=== PATIENT | female | born 1995 | race Two or more races ===

== ENCOUNTER 2017-10-14 23:34 | Emergency (ER) | payer OTHER ==
[2017-10-15 00:31] LABS: BASO # 0.1 10^3/uL (0.0-0.2); BASO % 0.6 % (0.0-1.0); EOS # 0.2 10^3/uL (0.0-0.50); EOS % 1.9 % (0.0-3.0); IMMATURE GRANULOCYTE % 0.2 % (0-0); LYMPH # 3.7 10^3/uL (1.5-6.5); LYMPH % 37.5 % (24.0-44.0); MEAN CORPUSCULAR HEMOGLOBIN 27.6 pg (27.0-33.0); MEAN CORPUSCULAR HGB CONC 33.5 g/dl (32.0-36.5); MEAN CORPUSCULAR VOLUME 82.4 fl (80.0-96.0); MONO # 0.7 10^3/uL (0.0-0.8); MONO % 6.6 % (0.0-5.0); NEUTROPHILS # 5.3 10^3/uL (1.8-7.7); NEUTROPHILS % 53.2 % (36.0-66.0); PLATELET COUNT, AUTOMATED 311 10^3/uL (150-450)
[2017-10-15 01:05] LABS: ANION GAP 8 MEQ/L (8-16); BLOOD UREA NITROGEN 17 MG/DL (7-18); CALCIUM LEVEL 8.9 MG/DL (8.5-10.1); CARBON DIOXIDE LEVEL 26 MEQ/L (21-32); CHLORIDE LEVEL 104 MEQ/L (98-107); CREATININE FOR GFR 0.48 MG/DL (0.55-1.02); GLOMERULAR FILTRATION RATE > 60.0 (>60); GLUCOSE, FASTING 81 MG/DL (70-105); HCG, SERUM QUANTITATIVE 57752 MIU/ML; POTASSIUM SERUM 4.1 MEQ/L (3.5-5.1); SODIUM LEVEL 138 MEQ/L (136-145)
== END 2017-10-15 02:38 | disposition home or self-care (01) ==
LOC: M ED 23:34
DX: O20.9 Hemorrhage in early pregnancy, unspecified (principal); Z3A.01 Less than 8 weeks gestation of pregnancy
CPT/HCPCS: 76801

== ENCOUNTER 2017-12-10 21:27 | Emergency (ER) | payer OTHER | END 2017-12-10 22:23 | disposition left against medical advice (07) | LOC: M ED 21:27 | DX: Z53.21 Procedure and treatment not carried out due to patient leaving prior to being seen by health care provider (principal) ==

== ENCOUNTER 2018-05-25 22:48 | Outpatient (CLI) | payer OTHER | END 2018-05-26 00:22 | disposition home or self-care (01) | LOC: M LDO 22:48 | DX: O62.2 Other uterine inertia (principal); Z3A.39 39 weeks gestation of pregnancy | CPT/HCPCS: 59025 ==

== ENCOUNTER 2018-05-30 15:35 | Inpatient (IN) | payer OTHER ==
[2018-05-30 17:28] LABS: HEMATOCRIT 39.1 % (36.0-47.0); MEAN CORPUSCULAR HEMOGLOBIN 29.1 pg (27.0-33.0); MEAN CORPUSCULAR HGB CONC 33.2 g/dl (32.0-36.5); MEAN CORPUSCULAR VOLUME 87.5 fl (80.0-96.0); PLATELET COUNT, AUTOMATED 243 10^3/uL (150-450); RED BLOOD COUNT 4.47 10^6/uL (4.00-5.40); RED CELL DISTRIBUTION WIDTH 14.1 % (11.5-14.5); WHITE BLOOD COUNT 14.2 10^3/uL (4.0-10.0)
[2018-05-30 18:07] LABS: ALT/SGPT 21 U/L (12-78); AST/SGOT 18 U/L (7-37); BILIRUBIN,TOTAL 0.2 MG/DL (0.2-1.0); CREATININE FOR GFR 0.69 MG/DL (0.55-1.30); GLOMERULAR FILTRATION RATE > 60.0 (>60); LDH LACTATE DEHYDROGENASE 207 U/L (84-246); URIC ACID 4.6 MG/DL (2.6-6.0)
[2018-05-30] MEDS: LR 1,000 ML IV (19:47)
[2018-05-30] MEDS: OXYTOCIN DRIP 30 UNITS in APPROPRIATE DILUENT 1 EA IV (21:00)
[2018-05-30] MEDS: FAMOTIDINE 20 MG TAB PO (21:41)
[2018-05-30] MEDS: PROMETHAZINE INJ 25 MG/ML VIAL (J2550) IV (23:13)
[2018-05-30] MEDS: BUTORPHANOL 2 MG/ML INJ (J0595) IV (23:14)
[2018-05-31] MEDS: LR 1,000 ML IV ×4 (02:04→19:25)
[2018-05-31] MEDS: LACTATED RINGER'S 1000 ML IV (05:51)
[2018-05-31] MEDS ORDERED: FENTANYL 2MCG/ML ROPIVACAINE 0.2% IN 0.9% NACL 200ML IVBAG As Ordered (05:55)
[2018-05-31] MEDS ORDERED: LACTATED RINGER'S 1000 ML IV (07:30)
[2018-05-31] MEDS ORDERED: REFRIGERATOR IV KEYS XX (07:30)
[2018-05-31] MEDS ORDERED: EPIDURAL COMMENT XX (07:30)
[2018-05-31] MEDS ORDERED: EPIDURAL/PCA KEYS XX (07:30)
[2018-05-31] MEDS ORDERED: FENTANYL/ROPIVACAINE/NACL BAG 200 ML EPIDURAL (07:30)
[2018-05-31] MEDS ORDERED: NALOXONE INJ 0.4 MG/1 ML VIAL (J2310) IV ×3 (07:30→16:45)
[2018-05-31] MEDS ORDERED: diphenhydrAMINE INJ 50MG/ML VIAL (J1200) IV (07:30)
[2018-05-31] MEDS ORDERED: ONDANSETRON 4MG/2ML VIAL (J2405) IV ×4 (07:30→17:30)
[2018-05-31] MEDS ORDERED: OXYTOCIN DRIP 30 UNITS in APPROPRIATE DILUENT 1 EA IV (09:15)
[2018-05-31] MEDS: ePHEDrine SULFATE 25 MG/5 ML(5MG/ML) SYRINGE IV ×3 (11:15→11:27)
[2018-05-31] MEDS: KCL 20MEQ IN D5/0.45NS 1000ML 1,000 ML IV (13:37)
[2018-05-31] MEDS ORDERED: ceFAZolin 2 GM/D5W 50 ML IV BAG (J0690 PER 500MG) As Ordered (15:57)
[2018-05-31] MEDS ORDERED: BICITRA 30ML SOLN UDC As Ordered (15:57)
[2018-05-31] MEDS ORDERED: NALBUPHINE HCL 10 MG/ML AMP (J2300) IV (16:45)
[2018-05-31] MEDS ORDERED: METOCLOPRAMIDE INJ 10MG/2ML VIAL (J2765) IV ×2 (16:45→17:30)
[2018-05-31 17:15] LABS: CORD GAS ABE V -10.1; CORD GAS HCO3 V 17.9 MEQ/L; CORD GAS O2 SAT V 50.9 %; CORD GAS PCO2 V 47.3 mmHg; CORD GAS PH V 7.197 UNITS; CORD GAS PO2 V 25.4 mmHg; CORD GAS SBC V 15.6 MEQ/L; CORD GAS TCO2 V 19.4 MEQ/L
[2018-05-31] MEDS ORDERED: MEASLES,MUMPS,RUBELLA VACCINE INJ (MMR-II) (90707) SC (17:15)
[2018-05-31] MEDS ORDERED: METHYLERGONOVINE MALEATE 0.2 MG TAB PO (17:15)
[2018-05-31 17:18] LABS: CORD GAS O2 SAT A < 15.0 %
[2018-05-31 17:19] LABS: CORD GAS ABE A -9.6; CORD GAS HCO3 A 18.6 MEQ/L; CORD GAS PCO2 A 49.2 mmHg; CORD GAS PH A 7.196 UNITS; CORD GAS TCO2 A 20.1 MEQ/L
[2018-05-31] MEDS ORDERED: fentaNYL 100 MCG/2 ML INJECTION (J3010) IV (17:30)
[2018-05-31] MEDS ORDERED: MEPERIDINE INJ 25 MG/ML VIAL (J2175) IV (17:30)
[2018-05-31] MEDS ORDERED: PERCOCET 5MG/325MG TAB PO (17:30)
[2018-05-31] MEDS: BICITRA 30ML SOLN UDC PO (19:29)
[2018-05-31] MEDS: PERCOCET 5MG/325MG TAB PO (19:31)
[2018-05-31] MEDS: KETOROLAC 30 MG/ML VIAL (J1885) IV (21:09)
[2018-06-01] MEDS: LR 1,000 ML IV ×4 (03:30→17:01)
[2018-06-01] MEDS: KETOROLAC 30 MG/ML VIAL (J1885) IV ×2 (04:16→10:15)
[2018-06-01 07:07] LABS: HEMATOCRIT 26.8 % (36.0-47.0); MEAN CORPUSCULAR HEMOGLOBIN 29.8 pg (27.0-33.0); MEAN CORPUSCULAR HGB CONC 33.6 g/dl (32.0-36.5); MEAN CORPUSCULAR VOLUME 88.7 fl (80.0-96.0); PLATELET COUNT, AUTOMATED 168 10^3/uL (150-450); RED BLOOD COUNT 3.02 10^6/uL (4.00-5.40); RED CELL DISTRIBUTION WIDTH 13.9 % (11.5-14.5); WHITE BLOOD COUNT 17.8 10^3/uL (4.0-10.0)
[2018-06-01] MEDS: PRENATAL VITAMINS CHEWABLE TABLET PO (08:00)
[2018-06-01] MEDS: FERROUS SULFATE 325MG TAB PO (08:00)
[2018-06-01] MEDS: PERCOCET 5MG/325MG TAB PO ×4 (08:00→23:53)
[2018-06-01] MEDS: IBUPROFEN 800 MG TAB PO (17:43)
[2018-06-01] MEDS: DOCUSATE SODIUM 100 MG CAP PO (20:10)
[2018-06-02] MEDS: IBUPROFEN 800 MG TAB PO ×2 (01:28→09:04)
[2018-06-02] MEDS: PERCOCET 5MG/325MG TAB PO ×2 (04:40→09:04)
[2018-06-02] MEDS: PRENATAL VITAMINS CHEWABLE TABLET PO (09:03)
[2018-06-02] MEDS: FERROUS SULFATE 325MG TAB PO (09:03)
== END 2018-06-02 13:10 | disposition home or self-care (01) | DRG 766 ==
LOC: M LDO 15:35 → M LDI 18:58 → M OBS 05-31 18:57
PROVIDERS: Obstetrics & Gynecology
PROC: 10D00Z1 Extraction of Products of Conception, Low, Open Approach (ICD-10-PCS; principal; 2018-05-31 16:07)
PROC: 0UQGXZZ Repair Vagina, External Approach (ICD-10-PCS; 2018-05-31 16:07)
DX: O13.4 Gestational [pregnancy-induced] hypertension without significant proteinuria, complicating childbirth (principal); Z37.0 Single live birth; Z3A.39 39 weeks gestation of pregnancy; O66.5 Attempted application of vacuum extractor and forceps; O76 Abnormality in fetal heart rate and rhythm complicating labor and delivery; O71.4 Obstetric high vaginal laceration alone

== ENCOUNTER 2018-06-07 16:50 | Emergency (ER) | payer OTHER ==
[2018-06-07 18:16] LABS: HEMATOCRIT 28.2 % (36.0-47.0); HEMOGLOBIN 9.3 g/dl (12.0-15.5); MEAN CORPUSCULAR HEMOGLOBIN 28.8 pg (27.0-33.0); MEAN CORPUSCULAR VOLUME 87.3 fl (80.0-96.0); PLATELET COUNT, AUTOMATED 389 10^3/uL (150-450); RED BLOOD COUNT 3.23 10^6/uL (4.00-5.40); RED CELL DISTRIBUTION WIDTH 13.2 % (11.5-14.5); WHITE BLOOD COUNT 11.2 10^3/uL (4.0-10.0)
[2018-06-07 18:20] LABS: ADD MANUAL DIFFER YES; DIFF SLIDE NUMBER 391; POS COUNT POS FLAG; POSITIVE MORPH POS FLAG
[2018-06-07 18:30] LABS: PARTIAL THROMBOPLASTIN TIME 35.7 SECONDS (25.4-37.6); PROTHROMBIN TIME 13.3 SECONDS (12.1-14.4)
[2018-06-07 18:40] LABS: ALBUMIN 2.2 GM/DL (3.2-5.2); ALBUMIN/GLOBULIN RATIO 0.54 (1.00-1.93); ALKALINE PHOSPHATASE 154 U/L (45-117); ALT/SGPT 33 U/L (12-78); ANION GAP 10 MEQ/L (8-16); AST/SGOT 22 U/L (7-37); BILIRUBIN,DIRECT < 0.1 MG/DL (0.0-0.2); BILIRUBIN,TOTAL 0.2 MG/DL (0.2-1.0); BLOOD UREA NITROGEN 22 MG/DL (7-18); CALCIUM LEVEL 8.8 MG/DL (8.5-10.1); CARBON DIOXIDE LEVEL 24 MEQ/L (21-32); CHLORIDE LEVEL 110 MEQ/L (98-107); CREATININE FOR GFR 0.66 MG/DL (0.55-1.30); GLOMERULAR FILTRATION RATE > 60.0 (>60); GLUCOSE, FASTING 94 MG/DL (70-100); POTASSIUM SERUM 4.5 MEQ/L (3.5-5.1); SODIUM LEVEL 144 MEQ/L (136-145); TOTAL PROTEIN 6.3 GM/DL (6.4-8.2)
[2018-06-07 18:41] LABS: BANDS 4 % (< 11); EOSINOPHILS 3 % (0-5); LYMPHOCYTES 24 % (16-52); METAMYELOCYTES 1 % (0-0); MONOCYTES 7 % (0-8); MYELOCYTES 2 % (0-0); NEUTROPHILS 59 % (35-75)
[2018-06-07 18:42] LABS: ANISOCYTOSIS 1+; PLATELET ESTIMATE NORMAL (NORMAL)
== END 2018-06-07 20:00 | disposition home or self-care (01) ==
LOC: M ED 16:50
DX: O90.89 Other complications of the puerperium, not elsewhere classified (principal); O16.5 Unspecified maternal hypertension, complicating the puerperium; Z79.899 Other long term (current) drug therapy
CPT/HCPCS: 76856